=== PATIENT | female | born 2005 | race Caucasian/White ===

== ENCOUNTER 2023-02-06 20:36 | Emergency (ER) | payer BC ==
[2023-02-06] MEDS ORDERED: Ondansetron ODT 4 MG TAB ONE (21:04)
[2023-02-06] MEDS ORDERED: Ibuprofen 200 MG TAB ONE ×2 (21:04→21:07)
[2023-02-06] MEDS ORDERED: Dicyclomine 20 MG TAB ONE (21:49)
== END 2023-02-06 21:54 | disposition home or self-care (01) ==
LOC: CSHERS 20:36
DX: A08.4 Viral intestinal infection, unspecified (principal)
CPT/HCPCS: 99284; Q0162